=== PATIENT | male | born 1970 | race Caucasian/White ===

== ENCOUNTER 2017-08-01 12:28 | Inpatient (IN) ==
[2017-08-01] MEDS ORDERED: HEPARIN DRIP 25,000 UNITS/500 ML PREMIX IV SCH (13:00)
[2017-08-01] MEDS ORDERED: ZALEPLON 5 MG CAPSULE PO PRN (13:15)
[2017-08-01] MEDS ORDERED: MORPHINE 2 MG/1 ML SYRINGE IV PRN (13:15)
[2017-08-01] MEDS ORDERED: ONDANSETRON 4 MG/2 ML VIAL IV PRN (13:15)
[2017-08-01 14:00] LABS: Basophils # 0.1 10*3/uL (0.0-0.2); Basophils % 0.2 % (0.0-0.8); Eosinophils # 0.3 10*3/uL (0.0-0.87); Eosinophils % 1.3 % (0.00-10.9); Hematocrit 44.8 VOL% (42.0-52.0); Hemoglobin 15.3 GM/DL (14.0-18.0); Immature Granulocytes % 0.9 %; Immature Granulocytes Absolute 0.18 #; Lymphocytes # 1.3 10*3/uL (1.4-4.0); Lymphocytes % 6.5 % (21.2-54.2); Mean Corpuscular HGB Conc 34.2 GM/DL (32-36); Mean Corpuscular Hemoglobin 30 PG (27-34); Mean Corpuscular Volume 87.8 FL (87-102); Monocytes # 1.9 10*3/uL (0.11-0.8); Monocytes % 9.2 % (1.7-12.7); Neutrophils # 16.7 10*3/uL (1.4-7.4); Neutrophils % 81.9 % (38.7-73.9); Platelet Count 343 T/CUMM (130-400); Red Cell Distribution Width 12.3 % (9.3-17.3); White Blood Count 20.4 T/CUMM (4-12)
[2017-08-01] MEDS ORDERED: METOPROLOL TARTRATE 5 MG/5 ML VIAL IV ONE (14:04)
[2017-08-01 14:17] LABS: Albumin 2.9 G/DL (3.4-5.0); Bilirubin,Total 1.9 MG/DL (0.2-1.0); Calcium 8.9 MG/DL (8.5-10.1); Osmolality,Calculated 277.7 MOS/KG (273-304); Potassium 4.1 MMOL/L (3.5-5.1); Total Protein 6.7 G/DL (6.4-8.3)
[2017-08-01 14:44] LABS: Eosinophils 1 % (0-10); Lymphocytes 6 % (20-55); Platelet Estimate Normal; Polychromasia Few; Segmented Neutrophils 90 % (50-85); Total Cells Counted 100
[2017-08-01] MEDS ORDERED: LORazepam 2 MG/1 ML VIAL IV ONE (15:12)
[2017-08-01] MEDS ORDERED: LORazepam 2 MG/1 ML VIAL ONE (15:14)
[2017-08-01] MEDS: LEVOFLOXACIN INJ 750 MG in PREMIX 1 EACH IV SCH (15:55)
[2017-08-01] MEDS: SODIUM CHLORIDE 0.9% 1,000 ML IV SCH (15:56)
[2017-08-01 16:15] LABS: Lymphocytes,Pleural Fluid 11 %; Neutrophils,Pleural Fluid 89 %; RBC,Pleural Fluid 272 T/CUMM
[2017-08-01] MEDS ORDERED: LACTATED RINGERS 1,000 ML IV ONE (16:24)
[2017-08-01 17:31] LABS: Apearance,Urine Slightly Hazy (Clear); Bilirubin,Urine Small mg/dL (Negative); Blood, Urine Negative (Negative); Glucose,Urine (UA) Negative (Negative); Ketones,Urine 20 mg/dL (Negative); Mucus,Urine Few /LPF (Occasional); Nitrite,Urine Negative (Negative); Protein,Urine 100 MG/DL; Urine Color Amber (Yellow); WBC,Urine 2 /HPF (0-6)
[2017-08-01] MEDS ORDERED: SEVOFLURANE 1 UNIT/15 MINUTE INH ONE ×2 (18:23→22:52)
[2017-08-01] MEDS ORDERED: fentaNYL 100 MCG/2 ML VIAL ONE ×2 (18:24→22:52)
[2017-08-01] MEDS ORDERED: PROPOFOL 200 MG/20 ML VIAL IV ONE (18:24)
[2017-08-01] MEDS ORDERED: PHENYLEPHRINE 1 MG/10 ML SYRINGE IV ONE ×2 (18:25→22:54)
[2017-08-01] MEDS ORDERED: MIDAZOLAM 2 MG/2 ML VIAL ONE ×2 (18:25→22:52)
[2017-08-01] MEDS ORDERED: FLUMAZENIL 0.5 MG/5 ML VIAL IV ONE (18:25)
[2017-08-01 18:35] LABS: Amylase,Pleural Fluid 24 U/L; Glucose,Pleural Fluid 36 MG/DL; Total Protein,Pleural Fluid 4.9 G/DL
[2017-08-01 18:44] LABS: ABG HCO3 26.1 MMOL/L (20-26); ABG Oxygen Saturation 96.3 % (95-100); ABG PCO2 39.3 MM HG (35-48); ABG PO2 87.5 MM HG (80-95); ABG TCO2 27.3 MMOL/L (23-27)
[2017-08-01 19:09] LABS: Lactic Acid 2.3 MMOL/L (0.4-2.0)
[2017-08-01 19:13] LABS: Lymphocytes,Pleural Fluid 7 %; Neutrophils,Pleural Fluid 93 %; RBC,Pleural Fluid > 100000 T/CUMM
[2017-08-01] MEDS: CLINDAMYCIN INJ 600 MG in PREMIX 1 EACH IV SCH (19:15)
[2017-08-01] MEDS ORDERED: TISSUE ADHESIVE 1 EACH APPLICATOR TOP ONE (21:55)
[2017-08-01 22:45] LABS: ABG Base Excess -0.1 MMOL/L (-2.5-2.5); ABG HCO3 24.4 MMOL/L (20-26); ABG Oxygen Saturation 99.4 % (95-100); ABG PCO2 40.7 MM HG (35-48); ABG PH 7.392 (7.35-7.45); ABG TCO2 21.8 MMOL/L (23-27)
[2017-08-01 22:52] LABS: Apearance,Urine CLEAR (Clear); Bilirubin,Urine Negative (Negative); Blood, Urine Negative (Negative); Glucose,Urine (UA) Negative (Negative); Ketones,Urine 5 mg/dL (Negative); Mucus,Urine Occasional /LPF (Occasional); Nitrite,Urine Negative (Negative); Protein,Urine 30 MG/DL; RBC,Urine 2 /HPF (0-4); Urine Color Amber (Yellow); Urine Specific Gravity 1.032 (1.001-1.035)
[2017-08-01] MEDS ORDERED: ONDANSETRON 4 MG/2 ML VIAL ONE (22:53)
[2017-08-01] MEDS ORDERED: DEXAMETHASONE 10 MG/1 ML VIAL ONE (22:53)
[2017-08-01] MEDS ORDERED: PHENYLEPHRINE 10 MG/1 ML VIAL IV ONE (22:53)
[2017-08-01] MEDS ORDERED: KETOROLAC 30 MG/1 ML VIAL ONE (22:53)
[2017-08-01] MEDS ORDERED: ETOMIDATE 40 MG/20 ML VIAL IV ONE (22:53)
[2017-08-01] MEDS ORDERED: ROCURONIUM 100 MG/10 ML VIAL IV ONE (22:53)
[2017-08-01] MEDS ORDERED: LACTATED RINGERS 2,000 ML IV ONE (22:54)
[2017-08-01] MEDS ORDERED: SODIUM CHLORIDE 0.9% 250 ML IV ONE (22:54)
[2017-08-02] MEDS: PROPOFOL 1,000 MG/100 ML BOTTLE IV SCH ×2 (00:30→06:34)
[2017-08-02] MEDS: DOCUSATE SODIUM 100 MG CAPSULE PO SCH ×3 (01:59→20:27)
[2017-08-02] MEDS: BACLOFEN 10 MG TABLET PO SCH ×4 (03:41→20:27)
[2017-08-02] MEDS: CLINDAMYCIN INJ 600 MG in PREMIX 1 EACH IV SCH ×3 (03:42→18:20)
[2017-08-02] MEDS: SODIUM CHLORIDE 0.9% 1,000 ML IV SCH ×3 (03:42→18:21)
[2017-08-02 04:25] LABS: Basophils % 0.2 % (0.0-0.8); Hematocrit 38.4 VOL% (42.0-52.0); Hemoglobin 12.6 GM/DL (14.0-18.0); Immature Granulocytes % 0.7 %; Immature Granulocytes Absolute 0.13 #; Lymphocytes # 0.7 10*3/uL (1.4-4.0); Lymphocytes % 4.1 % (21.2-54.2); Mean Corpuscular HGB Conc 32.8 GM/DL (32-36); Mean Corpuscular Hemoglobin 30 PG (27-34); Mean Corpuscular Volume 90.8 FL (87-102); Mean Platelet Volume 10.8 FL (9.6-12.0); Monocytes # 1.1 10*3/uL (0.11-0.8); Neutrophils # 15.9 10*3/uL (1.4-7.4); Platelet Count 288 T/CUMM (130-400); Red Blood Count 4.23 MC/CUMM (3.8-5.5); Red Cell Distribution Width 12.4 % (9.3-17.3); White Blood Count 17.9 T/CUMM (4-12)
[2017-08-02 05:15] LABS: Albumin 2.1 G/DL (3.4-5.0); Bilirubin,Total 1.9 MG/DL (0.2-1.0); Calcium 8.1 MG/DL (8.5-10.1); Osmolality,Calculated 283.3 MOS/KG (273-304); Potassium 4.4 MMOL/L (3.5-5.1)
[2017-08-02 07:57] LABS: Band Neutrophils 5 % (0-10); Eosinophils 1 % (0-10); Hypochromasia Slight; Lymphocytes 2 % (20-55); Platelet Estimate Adequate; Segmented Neutrophils 89 % (50-85); Total Cells Counted 100
[2017-08-02 09:59] LABS: ABG Base Excess 1.8 MMOL/L (-2.5-2.5); ABG Oxygen Saturation 97.7 % (95-100); ABG PCO2 42.6 MM HG (35-48); ABG PH 7.406 (7.35-7.45); ABG TCO2 22.9 MMOL/L (23-27)
[2017-08-02 11:07] LABS: ABG Base Excess 2.7 MMOL/L (-2.5-2.5); ABG HCO3 26.8 MMOL/L (20-26); ABG Oxygen Saturation 98.3 % (95-100); ABG PCO2 40.6 MM HG (35-48); ABG PH 7.432 (7.35-7.45); ABG TCO2 23.9 MMOL/L (23-27)
[2017-08-02] MEDS: BISACODYL 5 MG TABLET PO SCH (12:04)
[2017-08-02] MEDS: PANTOPRAZOLE 40 MG TABLET PO SCH (12:04)
[2017-08-02] MEDS: clonazePAM 0.5 MG TABLET PO PRN (14:03)
[2017-08-02] MEDS: LEVOFLOXACIN INJ 750 MG in PREMIX 1 EACH IV SCH (15:09)
[2017-08-02] MEDS: BENZONATATE 100 MG CAPSULE PO SCH ×2 (15:09→20:28)
[2017-08-02] MEDS: BUDESONIDE 0.25 MG/2 ML NEB RESP TX SCH (19:34)
[2017-08-02] MEDS: SILODOSIN 8 MG CAPSULE PO SCH (20:26)
[2017-08-02] MEDS: METHOCARBAMOL 750 MG TABLET PO SCH (20:27)
[2017-08-02] MEDS: VENLAFAXINE 75 MG TABLET PO SCH (20:27)
[2017-08-02] MEDS: ATORVASTATIN 10 MG TABLET PO SCH (20:27)
[2017-08-02] MEDS: clonazePAM 0.5 MG TABLET PO SCH (20:27)
[2017-08-02] MEDS: NAPROXEN 500 MG TABLET PO SCH (20:27)
[2017-08-02] MEDS ORDERED: NON-FORMULARY MEDICATION (Cholecalciferol (Vitamin D3) [Vitamin D3] 50,000 UNIT) PO SCH (21:00)
[2017-08-03] MEDS: CLINDAMYCIN INJ 600 MG in PREMIX 1 EACH IV SCH ×3 (01:46→18:38)
[2017-08-03] MEDS: clonazePAM 0.5 MG TABLET PO PRN ×2 (01:47→13:16)
[2017-08-03] MEDS: SODIUM CHLORIDE 0.9% 1,000 ML IV SCH ×3 (01:49→15:03)
[2017-08-03 04:28] LABS: Basophils % 0.2 % (0.0-0.8); Eosinophils # 0.2 10*3/uL (0.0-0.87); Eosinophils % 1.2 % (0.00-10.9); Hematocrit 34.7 VOL% (42.0-52.0); Hemoglobin 11.1 GM/DL (14.0-18.0); Immature Granulocytes % 0.5 %; Immature Granulocytes Absolute 0.07 #; Lymphocytes # 1.5 10*3/uL (1.4-4.0); Lymphocytes % 10.8 % (21.2-54.2); Mean Corpuscular Hemoglobin 29 PG (27-34); Mean Corpuscular Volume 91.1 FL (87-102); Mean Platelet Volume 10.6 FL (9.6-12.0); Monocytes # 1.2 10*3/uL (0.11-0.8); Monocytes % 8.3 % (1.7-12.7); Neutrophils # 11.1 10*3/uL (1.4-7.4); Platelet Count 272 T/CUMM (130-400); Red Blood Count 3.81 MC/CUMM (3.8-5.5); Red Cell Distribution Width 12.5 % (9.3-17.3); White Blood Count 14.1 T/CUMM (4-12)
[2017-08-03 05:09] LABS: Osmolality,Calculated 286.1 MOS/KG (273-304); Potassium 4.3 MMOL/L (3.5-5.1)
[2017-08-03] MEDS: PROPOFOL 1,000 MG/100 ML BOTTLE IV SCH ×2 (06:35→21:00)
[2017-08-03] MEDS: BUDESONIDE 0.25 MG/2 ML NEB RESP TX SCH ×2 (08:18→19:39)
[2017-08-03] MEDS: PANTOPRAZOLE 40 MG TABLET PO SCH (08:49)
[2017-08-03] MEDS: BACLOFEN 10 MG TABLET PO SCH ×3 (08:49→21:34)
[2017-08-03] MEDS: BISACODYL 5 MG TABLET PO SCH (08:49)
[2017-08-03] MEDS: NAPROXEN 500 MG TABLET PO SCH ×2 (08:49→21:34)
[2017-08-03] MEDS: DOCUSATE SODIUM 100 MG CAPSULE PO SCH ×2 (08:49→21:34)
[2017-08-03] MEDS: METOPROLOL TARTRATE 50 MG TABLET PO SCH (08:50)
[2017-08-03] MEDS: BENZONATATE 100 MG CAPSULE PO SCH ×3 (08:50→21:34)
[2017-08-03] MEDS: METHOCARBAMOL 750 MG TABLET PO SCH ×2 (08:50→21:34)
[2017-08-03] MEDS ORDERED: PANTOPRAZOLE 40 MG TABLET PO SCH (09:00)
[2017-08-03] MEDS: LEVOFLOXACIN INJ 750 MG in PREMIX 1 EACH IV SCH (15:07)
[2017-08-03] MEDS: ATORVASTATIN 10 MG TABLET PO SCH (21:33)
[2017-08-03] MEDS: clonazePAM 0.5 MG TABLET PO SCH (21:34)
[2017-08-03] MEDS: VENLAFAXINE 75 MG TABLET PO SCH (21:34)
[2017-08-03] MEDS: SILODOSIN 8 MG CAPSULE PO SCH (21:34)
[2017-08-03] MEDS ORDERED: MAGNESIUM HYDROXIDE SUSP 30 ML UDCUP PO ONE (23:09)
[2017-08-04] MEDS: CLINDAMYCIN INJ 600 MG in PREMIX 1 EACH IV SCH ×3 (01:37→17:49)
[2017-08-04] MEDS: SODIUM CHLORIDE 0.9% 1,000 ML IV SCH ×2 (05:37→11:33)
[2017-08-04 06:33] LABS: Basophils # 0.1 10*3/uL (0.0-0.2); Basophils % 0.5 % (0.0-0.8); Eosinophils # 0.4 10*3/uL (0.0-0.87); Eosinophils % 3.7 % (0.00-10.9); Hematocrit 36.6 VOL% (42.0-52.0); Hemoglobin 12.2 GM/DL (14.0-18.0); Immature Granulocytes % 0.5 %; Immature Granulocytes Absolute 0.06 #; Lymphocytes # 2.2 10*3/uL (1.4-4.0); Lymphocytes % 19.7 % (21.2-54.2); Mean Corpuscular HGB Conc 33.3 GM/DL (32-36); Mean Corpuscular Hemoglobin 30 PG (27-34); Mean Corpuscular Volume 89.1 FL (87-102); Mean Platelet Volume 10.1 FL (9.6-12.0); Monocytes % 8.9 % (1.7-12.7); Neutrophils # 7.3 10*3/uL (1.4-7.4); Neutrophils % 66.7 % (38.7-73.9); Platelet Count 332 T/CUMM (130-400); Red Blood Count 4.11 MC/CUMM (3.8-5.5); Red Cell Distribution Width 12.6 % (9.3-17.3)
[2017-08-04 06:58] LABS: Calcium 7.6 MG/DL (8.5-10.1)
[2017-08-04 06:59] LABS: Albumin 2.1 G/DL (3.4-5.0); Bilirubin,Total 0.5 MG/DL (0.2-1.0); Potassium 4.3 MMOL/L (3.5-5.1); Total Protein 4.9 G/DL (6.4-8.3)
[2017-08-04] MEDS ORDERED: BISACODYL 10 MG SUPP RECTAL ONE (07:54)
[2017-08-04] MEDS: NAPROXEN 500 MG TABLET PO SCH ×2 (08:36→21:41)
[2017-08-04] MEDS: METHOCARBAMOL 750 MG TABLET PO SCH ×2 (08:36→21:40)
[2017-08-04] MEDS: METOPROLOL TARTRATE 50 MG TABLET PO SCH (08:36)
[2017-08-04] MEDS: PANTOPRAZOLE 40 MG TABLET PO SCH (08:36)
[2017-08-04] MEDS: BISACODYL 5 MG TABLET PO SCH (08:37)
[2017-08-04] MEDS: DOCUSATE SODIUM 100 MG CAPSULE PO SCH ×2 (08:37→21:43)
[2017-08-04] MEDS: BACLOFEN 10 MG TABLET PO SCH ×3 (08:37→21:40)
[2017-08-04] MEDS: BENZONATATE 100 MG CAPSULE PO SCH ×3 (08:37→21:41)
[2017-08-04] MEDS: BUDESONIDE 0.25 MG/2 ML NEB RESP TX SCH ×2 (11:30→19:53)
[2017-08-04] MEDS: LEVOFLOXACIN INJ 750 MG in PREMIX 1 EACH IV SCH (14:54)
[2017-08-04] MEDS: LACTOBACILLUS ACIDOPHILUS/BULGARICUS CAPLET PO SCH (21:40)
[2017-08-04] MEDS: NYSTATIN 500,000 UNIT/5 ML UDCUP SWISH/SWAL SCH (21:40)
[2017-08-04] MEDS: SILODOSIN 8 MG CAPSULE PO SCH (21:41)
[2017-08-04] MEDS: clonazePAM 0.5 MG TABLET PO SCH (21:41)
[2017-08-04] MEDS: VENLAFAXINE 75 MG TABLET PO SCH (21:41)
[2017-08-04] MEDS: ATORVASTATIN 10 MG TABLET PO SCH (21:41)
[2017-08-04] MEDS: NON-FORMULARY MEDICATION (Cholecalciferol (Vitamin D3) [Vitamin D3] 50,000 UNIT) PO SCH (22:02)
[2017-08-04] MEDS: PROPOFOL 1,000 MG/100 ML BOTTLE IV SCH (22:02)
[2017-08-05] MEDS ORDERED: ZINC OXIDE PASTE 113 GM TUBE TOP PRN (01:52)
[2017-08-05] MEDS: SODIUM CHLORIDE 0.9% 1,000 ML IV SCH ×3 (02:11→14:50)
[2017-08-05] MEDS: CLINDAMYCIN INJ 600 MG in PREMIX 1 EACH IV SCH ×3 (03:30→17:49)
[2017-08-05] MEDS: BISACODYL 5 MG TABLET PO SCH (08:12)
[2017-08-05] MEDS: NAPROXEN 500 MG TABLET PO SCH ×2 (08:12→21:19)
[2017-08-05] MEDS: METHOCARBAMOL 750 MG TABLET PO SCH ×2 (08:12→21:19)
[2017-08-05] MEDS: LACTOBACILLUS ACIDOPHILUS/BULGARICUS CAPLET PO SCH ×2 (08:12→21:19)
[2017-08-05] MEDS: BENZONATATE 100 MG CAPSULE PO SCH ×3 (08:12→21:19)
[2017-08-05] MEDS: METOPROLOL TARTRATE 50 MG TABLET PO SCH (08:12)
[2017-08-05] MEDS: NYSTATIN 500,000 UNIT/5 ML UDCUP SWISH/SWAL SCH ×4 (08:12→21:18)
[2017-08-05] MEDS: BACLOFEN 10 MG TABLET PO SCH ×3 (08:13→21:19)
[2017-08-05] MEDS: ACETAMINOPHEN 325 MG TABLET PO PRN ×2 (08:13→14:51)
[2017-08-05] MEDS: PANTOPRAZOLE 40 MG TABLET PO SCH (08:13)
[2017-08-05] MEDS: DOCUSATE SODIUM 100 MG CAPSULE PO SCH ×2 (08:14→21:18)
[2017-08-05] MEDS: BUDESONIDE 0.25 MG/2 ML NEB RESP TX SCH ×2 (08:14→19:10)
[2017-08-05] MEDS: LEVOFLOXACIN INJ 750 MG in PREMIX 1 EACH IV SCH (14:50)
[2017-08-05] MEDS: SILODOSIN 8 MG CAPSULE PO SCH (21:18)
[2017-08-05] MEDS: clonazePAM 0.5 MG TABLET PO SCH (21:18)
[2017-08-05] MEDS: ATORVASTATIN 10 MG TABLET PO SCH (21:19)
[2017-08-05] MEDS: NON-FORMULARY MEDICATION (Cholecalciferol (Vitamin D3) [Vitamin D3] 50,000 UNIT) PO SCH (21:19)
[2017-08-05] MEDS: VENLAFAXINE 75 MG TABLET PO SCH (21:19)
[2017-08-06] MEDS: SODIUM CHLORIDE 0.9% 1,000 ML IV SCH ×3 (01:14→18:19)
[2017-08-06] MEDS: CLINDAMYCIN INJ 600 MG in PREMIX 1 EACH IV SCH ×3 (01:44→19:19)
[2017-08-06 06:46] LABS: Basophils % 0.4 % (0.0-0.8); Eosinophils # 0.4 10*3/uL (0.0-0.87); Eosinophils % 3.5 % (0.00-10.9); Hematocrit 36.4 VOL% (42.0-52.0); Hemoglobin 12.3 GM/DL (14.0-18.0); Immature Granulocytes % 1.4 %; Immature Granulocytes Absolute 0.16 #; Lymphocytes # 1.8 10*3/uL (1.4-4.0); Lymphocytes % 15.6 % (21.2-54.2); Mean Corpuscular HGB Conc 33.8 GM/DL (32-36); Mean Corpuscular Hemoglobin 30 PG (27-34); Mean Corpuscular Volume 88.8 FL (87-102); Mean Platelet Volume 9.8 FL (9.6-12.0); Monocytes # 0.8 10*3/uL (0.11-0.8); Monocytes % 7.5 % (1.7-12.7); Neutrophils # 8.1 10*3/uL (1.4-7.4); Neutrophils % 71.6 % (38.7-73.9); Platelet Count 327 T/CUMM (130-400); Red Cell Distribution Width 12.3 % (9.3-17.3); White Blood Count 11.3 T/CUMM (4-12)
[2017-08-06 07:17] LABS: Calcium 7.9 MG/DL (8.5-10.1); Osmolality,Calculated 278.3 MOS/KG (273-304); Potassium 4.1 MMOL/L (3.5-5.1)
[2017-08-06] MEDS: BUDESONIDE 0.25 MG/2 ML NEB RESP TX SCH ×2 (07:24→19:27)
[2017-08-06] MEDS: BACLOFEN 10 MG TABLET PO SCH ×3 (09:39→22:29)
[2017-08-06] MEDS: LACTOBACILLUS ACIDOPHILUS/BULGARICUS CAPLET PO SCH ×2 (09:39→22:27)
[2017-08-06] MEDS: NYSTATIN 500,000 UNIT/5 ML UDCUP SWISH/SWAL SCH ×4 (09:39→22:26)
[2017-08-06] MEDS: METHOCARBAMOL 750 MG TABLET PO SCH ×2 (09:39→22:29)
[2017-08-06] MEDS: BENZONATATE 100 MG CAPSULE PO SCH ×3 (09:40→22:27)
[2017-08-06] MEDS: BISACODYL 5 MG TABLET PO SCH (09:40)
[2017-08-06] MEDS: METOPROLOL TARTRATE 50 MG TABLET PO SCH (09:40)
[2017-08-06] MEDS: PANTOPRAZOLE 40 MG TABLET PO SCH (09:40)
[2017-08-06] MEDS: DOCUSATE SODIUM 100 MG CAPSULE PO SCH ×2 (09:40→22:28)
[2017-08-06] MEDS: NAPROXEN 500 MG TABLET PO SCH ×2 (09:49→22:27)
[2017-08-06] MEDS: FLUCONAZOLE 100 MG TABLET PO SCH (14:40)
[2017-08-06] MEDS: LEVOFLOXACIN INJ 750 MG in PREMIX 1 EACH IV SCH (14:41)
[2017-08-06] MEDS: VENLAFAXINE 75 MG TABLET PO SCH (22:27)
[2017-08-06] MEDS: clonazePAM 0.5 MG TABLET PO SCH (22:27)
[2017-08-06] MEDS: SILODOSIN 8 MG CAPSULE PO SCH (22:28)
[2017-08-06] MEDS: ATORVASTATIN 10 MG TABLET PO SCH (22:28)
[2017-08-06] MEDS: NON-FORMULARY MEDICATION (Cholecalciferol (Vitamin D3) [Vitamin D3] 50,000 UNIT) PO SCH (22:30)
[2017-08-07] MEDS: CLINDAMYCIN INJ 600 MG in PREMIX 1 EACH IV SCH ×3 (05:21→21:13)
[2017-08-07] MEDS: BUDESONIDE 0.25 MG/2 ML NEB RESP TX SCH ×2 (07:42→19:30)
[2017-08-07] MEDS: PANTOPRAZOLE 40 MG TABLET PO SCH (08:16)
[2017-08-07] MEDS: NAPROXEN 500 MG TABLET PO SCH ×2 (08:16→21:14)
[2017-08-07] MEDS: LACTOBACILLUS ACIDOPHILUS/BULGARICUS CAPLET PO SCH ×2 (08:16→21:15)
[2017-08-07] MEDS: FLUCONAZOLE 100 MG TABLET PO SCH (08:16)
[2017-08-07] MEDS: BENZONATATE 100 MG CAPSULE PO SCH ×3 (08:16→21:15)
[2017-08-07] MEDS: METHOCARBAMOL 750 MG TABLET PO SCH ×2 (08:16→21:15)
[2017-08-07] MEDS: NYSTATIN 500,000 UNIT/5 ML UDCUP SWISH/SWAL SCH ×4 (08:17→21:15)
[2017-08-07] MEDS: BACLOFEN 10 MG TABLET PO SCH ×3 (08:17→21:15)
[2017-08-07] MEDS: BISACODYL 5 MG TABLET PO SCH (08:17)
[2017-08-07] MEDS: DOCUSATE SODIUM 100 MG CAPSULE PO SCH ×2 (08:17→21:14)
[2017-08-07] MEDS: METOPROLOL TARTRATE 50 MG TABLET PO SCH (08:17)
[2017-08-07] MEDS: LEVOFLOXACIN INJ 750 MG in PREMIX 1 EACH IV SCH (14:47)
[2017-08-07] MEDS: clonazePAM 0.5 MG TABLET PO SCH (21:14)
[2017-08-07] MEDS: ATORVASTATIN 10 MG TABLET PO SCH (21:14)
[2017-08-07] MEDS: SILODOSIN 8 MG CAPSULE PO SCH (21:14)
[2017-08-07] MEDS: VENLAFAXINE 75 MG TABLET PO SCH (21:15)
[2017-08-07] MEDS: NON-FORMULARY MEDICATION (Cholecalciferol (Vitamin D3) [Vitamin D3] 50,000 UNIT) PO SCH (21:17)
[2017-08-08] MEDS: CLINDAMYCIN INJ 600 MG in PREMIX 1 EACH IV SCH (06:23)
[2017-08-08 06:36] LABS: Basophils # 0.1 10*3/uL (0.0-0.2); Eosinophils # 0.5 10*3/uL (0.0-0.87); Eosinophils % 4.3 % (0.00-10.9); Hematocrit 40.9 VOL% (42.0-52.0); Hemoglobin 13.3 GM/DL (14.0-18.0); Immature Granulocytes % 4.2 %; Immature Granulocytes Absolute 0.46 #; Lymphocytes # 2.4 10*3/uL (1.4-4.0); Lymphocytes % 21.4 % (21.2-54.2); Mean Corpuscular HGB Conc 32.5 GM/DL (32-36); Mean Corpuscular Hemoglobin 30 PG (27-34); Mean Corpuscular Volume 91.3 FL (87-102); Mean Platelet Volume 9.8 FL (9.6-12.0); Monocytes % 9.4 % (1.7-12.7); Neutrophils # 6.6 10*3/uL (1.4-7.4); Neutrophils % 59.7 % (38.7-73.9); Platelet Count 377 T/CUMM (130-400); Red Blood Count 4.48 MC/CUMM (3.8-5.5); Red Cell Distribution Width 12.4 % (9.3-17.3)
[2017-08-08] MEDS: BUDESONIDE 0.25 MG/2 ML NEB RESP TX SCH (07:20)
[2017-08-08] MEDS: LACTOBACILLUS ACIDOPHILUS/BULGARICUS CAPLET PO SCH (09:25)
[2017-08-08] MEDS: NAPROXEN 500 MG TABLET PO SCH (09:26)
[2017-08-08] MEDS: PANTOPRAZOLE 40 MG TABLET PO SCH (09:26)
[2017-08-08] MEDS: DOCUSATE SODIUM 100 MG CAPSULE PO SCH (09:26)
[2017-08-08] MEDS: BISACODYL 5 MG TABLET PO SCH (09:26)
[2017-08-08] MEDS: BENZONATATE 100 MG CAPSULE PO SCH ×2 (09:26→16:05)
[2017-08-08] MEDS: BACLOFEN 10 MG TABLET PO SCH ×2 (09:26→16:04)
[2017-08-08] MEDS: METHOCARBAMOL 750 MG TABLET PO SCH (09:26)
[2017-08-08] MEDS: FLUCONAZOLE 100 MG TABLET PO SCH (09:26)
[2017-08-08] MEDS: NYSTATIN 500,000 UNIT/5 ML UDCUP SWISH/SWAL SCH ×3 (09:26→16:05)
[2017-08-08] MEDS: METOPROLOL TARTRATE 50 MG TABLET PO SCH (09:26)
[2017-08-08 15:54] VITALS: BP 126/72
[2017-08-08] MEDS ORDERED: AMOXICILLIN/CLAV 875 MG TABLET PO SCH (21:00)
== END 2017-08-08 17:34 | disposition home or self-care (01) | DRG 853 ==
LOC: N.CC 13:08 → SUATTDRO 13:08 → N.5E 08-03 14:43
PROVIDERS: ATTEND Internal Medicine